=== PATIENT | male | born 1955 | race Caucasian/White ===

== ENCOUNTER 2017-12-08 09:27 | Emergency (ER) | payer MEDICARE ==
[~2017-12-08] VITALS: Ht 182.9 cm; Wt 114.3 kg
[2017-12-08] MEDS ORDERED: Ropinirole HCl0.5 MG PO (09:35)
[2017-12-08] MEDS ORDERED: Omeprazole20 M1 (09:35)
[2017-12-08] MEDS ORDERED: ATOR40TA PO (09:35)
[2017-12-08] MEDS ORDERED: METO50 PO (09:35)
[2017-12-08] MEDS ORDERED: KETO10 PO (09:59)
[2017-12-08] MEDS ORDERED: Cyclobenzaprine5 MG PO (09:59)
== END 2017-12-08 10:25 | disposition home or self-care (01) ==
LOC: ER 09:27
DX: G89.29 Other chronic pain (principal); M54.5 Low back pain; Z88.5 Allergy status to narcotic agent; Z79.899 Other long term (current) drug therapy
CPT/HCPCS: 96372; 99283; J1885

== ENCOUNTER 2018-10-18 06:40 | Day surgery (SDC) | payer MEDICARE, OTHER ==
[~2018-10-18] VITALS: Ht 182.9 cm; Wt 117.7 kg
[~2018-10-18 06:40] MED LIST: ASPI81CH PO; ATOR40TA PO; CLOP75 PO; Cyclobenzaprine5 MG PO; KETO10 PO; LIVALO2 MG PO; METO50 PO; NITRSPRAY SL; Omeprazole20 M1 PO; Ropinirole HCl0.5 MG PO; TRAM50 PO
--- NOTE | 2018-10-18 09:15 | NUR ---
[facility]. ALERT AND ORIENTED X3. RIGHT WRIST SOFT, NO BLEED OR HEMATOMA, TR BAND CDI, ARM BOARD IN PLACE. AGGRASTAT GTT CONTINUED PER CARDIOLOGY. PER DR. SWEET, PT OK TO DISCHARGE TONIGHT AFTER AGGRASTAT OFF AND TR BAND SITE STABLE. PT DENIES PAIN, VSS. CALL LIGHT IN REACH.
[2018-10-18] MEDS ORDERED: GABA300 PO (09:41)
--- NOTE | 2018-10-18 12:56 | NUR ---
AGGRASTAT GTT COMPLETE. TR BAND CDI, WILL MONITOR AND REMOVE AIR PER PROTOCOL.
--- NOTE | 2018-10-18 18:29 | NUR ---
DISCHARGE NOTE ALL AIR REMOVED FROM TR BAND PER PROTOCOL. RIGHT WRIST SOFT, NO BLEED OR HEMATOMA, TR BAND CDI. TR BAND REMOVED. OPSITE APPLIED. RIGHT WRIST SOFT, NO BLEED OR HEMATOMA, ARMBOARD IN PLACE. PT STABLE FOR DISCHARGE. IV REMOVED. DISCHARGE INSTRUCTIONS, DISCHARGE MEDICATIONS AND RADIAL SITE ACCESS INSTRUCTIONS REVIEWED WITH PT AND FAMILY. PT AND FAMILY VERBALIZE UNDERSTANDING AND DENY QUESTIONS. PT DISCHARGED VIA WHEELCHAIR TO WAITING CAR WITH BELONGINGS.
== END 2018-10-18 18:04 | disposition home or self-care (01) ==
LOC: MHTC 06:40 → PCU 09:11 → MHTC 18:04
PROC: 027035Z Dilation of Coronary Artery, One Artery with Two Drug-eluting Intraluminal Devices, Percutaneous Approach (ICD-10-PCS; principal; 2018-10-18)
PROC: B241ZZ3 Ultrasonography of Multiple Coronary Arteries, Intravascular (ICD-10-PCS; principal; 2018-10-18)
PROC: B2111ZZ Fluoroscopy of Multiple Coronary Arteries using Low Osmolar Contrast (ICD-10-PCS; principal; 2018-10-18)
DX: I25.10 Atherosclerotic heart disease of native coronary artery without angina pectoris (principal); Z88.5 Allergy status to narcotic agent; Z95.5 Presence of coronary angioplasty implant and graft; Z95.0 Presence of cardiac pacemaker; I10 Essential (primary) hypertension; E78.5 Hyperlipidemia, unspecified; Z79.899 Other long term (current) drug therapy; Z79.82 Long term (current) use of aspirin; Z79.02 Long term (current) use of antithrombotics/antiplatelets; Z87.891 Personal history of nicotine dependence; Z79.891 Long term (current) use of opiate analgesic
CPT/HCPCS: 85347; 92978; 92979; 93458; 99152; 99153; C1725; C1753; C1769; C1874; C1887; C1894; C9600; J1644; J2250; J3010; J3246; J7030; Q9967

== ENCOUNTER 2020-11-11 20:34 | Emergency (ER) | payer MEDICARE, OTHER ==
[~2020-11-11] VITALS: Ht 182.9 cm; Wt 118.8 kg
[~2020-11-11 20:34] MED LIST changes: +GABA300 PO
[2020-11-11 22:25] LABS: BASOPHILS ABSOLUTE AUTO 0.01 K/mm3 (0.00-0.23); BASOPHILS PERCENT AUTO 0 % (0-2); EOSINOPHILS ABSOLUTE AUTO 0.07 K/mm3 (0.00-0.68); EOSINOPHILS PERCENT AUTO 1 % (0-6); Hematocrit 39.4 % (37.0-53.0); Hemoglobin 13.7 g/dL (13.5-17.5); IMMATURE GRAN ABSOLUTE AUTO 0.02 K/mm3 (0.00-0.10); IMMATURE GRAN PERCENT AUTO 0 % (0-1); LYMPHOCYTES ABSOLUTE AUTO 0.61 K/mm3 (0.84-5.20); LYMPHOCYTES PERCENT AUTO 7 % (21-46); MONOCYTES ABSOLUTE AUTO 0.72 K/mm3 (0.16-1.47); MONOCYTES PERCENT AUTO 8 % (4-13); Mean Corpuscular HGB Conc 34.8 g/dL (31.5-36.5); Mean Corpuscular Volume 86 fL (80-100); Mean Platelet Volume 9.1 fL (9.1-12.4); NEUTROPHILS ABSOLUTE AUTO 7.52 K/mm3 (1.96-9.15); NEUTROPHILS PERCENT AUTO 84 % (41-73); Platelet Count 110 K/mm3 (150-400); RDW Coefficient Variation 12.5 % (11.7-14.2); RDW Standard Deviation 39.8 fL (35.1-46.3); Red Blood Cell Count 4.56 M/mm3 (4.30-5.90); White Blood Cell Count 8.95 K/mm3 (4.00-11.30)
[2020-11-11 22:45] LABS: Alanine Aminotransfer (ALT/SGP 89 U/L (12-78); Albumin/Globulin Ratio 0.7 (0.8-1.8); Alk Phos 151 U/L (50-136); Anion Gap 7 mmol/L (6-16); Aspartate Aminotrans (AST/SGOT 59 U/L (12-37); Bilirubin, Total 1.5 mg/dL (0.1-1.0); Blood Urea Nitrogen 18 mg/dL (8-24); Bun/Creatinine Ratio 16.7 (12.0-20.0); CO2, Blood 25 mmol/L (21-32); Calcium, Blood 8.8 mg/dL (8.5-10.1); Chloride, Blood 102 mmol/L (98-108); Creatinine, Blood 1.08 mg/dL (0.60-1.20); Globulin, Blood 4.5 g/dL (2.2-4.0); Glomerular Filtration Rate >60 (60-); Glucose, Blood 178 mg/dL (70-99); Potassium, Blood 4.1 mmol/L (3.5-5.5); Sodium, Blood 134 mmol/L (136-145); Total Protein, Blood 7.5 g/dL (6.4-8.2)
[2020-11-11] MEDS ORDERED: PANT20 PO (23:12)
[2020-11-12] MEDS ORDERED: Cleocin HCl300 MG PO (00:10)
[2020-11-12] MEDS ORDERED: ONDA4ODT MM (00:11)
== END 2020-11-12 00:55 | disposition home or self-care (01) ==
LOC: ER 20:34
PROVIDERS: Physician Assistant
DX: J03.90 Acute tonsillitis, unspecified (principal); I10 Essential (primary) hypertension; Z79.02 Long term (current) use of antithrombotics/antiplatelets; Z79.82 Long term (current) use of aspirin; Z88.5 Allergy status to narcotic agent; Z79.899 Other long term (current) drug therapy
CPT/HCPCS: 36415; 70450; 70491; 80053; 85025; 93005; 93010; 96374; 96375; 99284-25; A9270; J1885; J2405; J7030; Q9967

== ENCOUNTER → 2021-01-14 | Outpatient (CLI) | payer MEDICARE ==
[~2021-01-14] MED LIST changes: +Cleocin HCl300 MG PO; +ONDA4ODT MM; +PANT20 PO
[2021-01-14 17:34] LABS: BASOPHILS ABSOLUTE AUTO 0.03 K/mm3 (0.00-0.23); BASOPHILS PERCENT AUTO 1 % (0-2); EOSINOPHILS ABSOLUTE AUTO 0.13 K/mm3 (0.00-0.68); EOSINOPHILS PERCENT AUTO 2 % (0-6); Hematocrit 41.8 % (37.0-53.0); Hemoglobin 14.4 g/dL (13.5-17.5); IMMATURE GRAN ABSOLUTE AUTO 0.02 K/mm3 (0.00-0.10); IMMATURE GRAN PERCENT AUTO 0 % (0-1); LYMPHOCYTES ABSOLUTE AUTO 2.25 K/mm3 (0.84-5.20); LYMPHOCYTES PERCENT AUTO 35 % (21-46); MONOCYTES ABSOLUTE AUTO 0.63 K/mm3 (0.16-1.47); MONOCYTES PERCENT AUTO 10 % (4-13); Mean Corpuscular HGB 30.1 pg (26.0-34.0); Mean Corpuscular HGB Conc 34.4 g/dL (31.5-36.5); Mean Corpuscular Volume 87 fL (80-100); Mean Platelet Volume 8.9 fL (9.1-12.4); NEUTROPHILS ABSOLUTE AUTO 3.33 K/mm3 (1.96-9.15); NEUTROPHILS PERCENT AUTO 52 % (41-73); Platelet Count 193 K/mm3 (150-400); RDW Coefficient Variation 13.7 % (11.7-14.2); Red Blood Cell Count 4.78 M/mm3 (4.30-5.90); White Blood Cell Count 6.39 K/mm3 (4.00-11.30)
[2021-01-14 17:46] LABS: Alanine Aminotransfer (ALT/SGP 29 U/L (12-78); Albumin, Blood 3.6 g/dL (3.4-5.0); Albumin/Globulin Ratio 0.9 (0.8-1.8); Alk Phos 72 U/L (40-126); Anion Gap 9 mmol/L (6-16); Aspartate Aminotrans (AST/SGOT 14 U/L (12-37); Bilirubin, Total 0.3 mg/dL (0.1-1.0); Blood Urea Nitrogen 16 mg/dL (8-24); Bun/Creatinine Ratio 17.8 (12.0-20.0); CHOL/HDL RATIO 5.9; CO2, Blood 30 mmol/L (21-32); Calcium, Blood 8.9 mg/dL (8.5-10.1); Chloride, Blood 105 mmol/L (98-108); Cholesterol 276 mg/dL (50-200); Globulin, Blood 3.8 g/dL (2.2-4.0); Glomerular Filtration Rate >60 (60-); Glucose, Blood 140 mg/dL (70-99); HDL Cholesterol 47 mg/dL (>39); LDL/HDL RATIO Unable to Calculate; Low Density Lipoprotein Chol Unable to Calculate mg/dL (<110); Potassium, Blood 4.2 mmol/L (3.5-5.5); Sodium, Blood 144 mmol/L (136-145); Total Protein, Blood 7.4 g/dL (6.4-8.2); Triglycerides 412 mg/dL (30-160); Very Low Density Lipoprot Chol Unable to Calculate mg/dL (6-32)
== END | disposition home or self-care (01) ==
LOC: LAB SHORT 17:25
PROVIDERS: Family Medicine
DX: E78.5 Hyperlipidemia, unspecified (principal); E53.8 Deficiency of other specified B group vitamins; G62.9 Polyneuropathy, unspecified; R73.9 Hyperglycemia, unspecified
CPT/HCPCS: 80053; 80061; 82607; 82746; 83036; 85025